=== PATIENT | female | born 1945 | race African-American/Black ===

== ENCOUNTER → 2017-02-06 | Outpatient (CLI) | payer OTHER, BC | LOC: RAD 01:25 | DX: Z12.31 Encounter for screening mammogram for malignant neoplasm of breast (principal) ==

== ENCOUNTER → 2019-03-31 | Outpatient (CLI) | payer OTHER | LOC: RAD 12:34 | DX: Z12.31 Encounter for screening mammogram for malignant neoplasm of breast (principal) ==

== ENCOUNTER → 2021-06-20 | Outpatient (CLI) | payer OTHER | LOC: BC 13:02 | PROVIDERS: ATTEND Internal Medicine | DX: Z12.31 Encounter for screening mammogram for malignant neoplasm of breast (principal); N64.89 Other specified disorders of breast ==